=== PATIENT | male | born 1935 | race Caucasian/White ===

== ENCOUNTER 2018-08-10 13:15 | Inpatient (IN) ==
[2018-08-10 14:04] LABS: Basophils % 0.5 % (0.0-0.8); Eosinophils # 0.1 10*3/uL (0.0-0.87); Eosinophils % 1.3 % (0.00-10.9); Hematocrit 38.8 VOL% (42.0-52.0); Hemoglobin 12.1 GM/DL (14.0-18.0); Immature Granulocytes % 2.7 %; Immature Granulocytes Absolute 0.21 #; Lymphocytes # 2.1 10*3/uL (1.4-4.0); Lymphocytes % 27.1 % (21.2-54.2); Mean Corpuscular HGB Conc 31.2 GM/DL (32-36); Mean Corpuscular Volume 94.4 FL (87-102); Mean Platelet Volume 10.4 FL (9.6-12.0); Monocytes % 5.2 % (1.7-12.7); Neutrophils % 63.2 % (38.7-73.9); Platelet Count 234 T/CUMM (130-400); Red Blood Count 4.11 MC/CUMM (3.8-5.5); Red Cell Distribution Width 13.8 % (9.3-17.3); White Blood Count 7.7 T/CUMM (4-12)
[2018-08-10 14:15] LABS: PT Patient Result 10.7 SECS; Partial Thromboplastin Time 27.8 SECS (0-40)
[2018-08-10 14:22] LABS: Albumin 3.6 G/DL (3.4-5.0); Bilirubin,Total 0.5 MG/DL (0.2-1.0); Calcium 9.3 MG/DL (8.5-10.1); Osmolality,Calculated 285.5 MOS/KG (273-304); Total Protein 7.3 G/DL (6.4-8.3)
[2018-08-10 15:11] LABS: Sedimentation Rate-Westergren 76 MM/HR (0-20)
[2018-08-10 15:34] LABS: Apearance,Urine CLEAR (Clear); Bilirubin,Urine Negative (Negative); Blood, Urine Negative (Negative); Glucose,Urine (UA) Negative (Negative); Ketones,Urine Negative (Negative); Mucus,Urine Occasional /LPF (Occasional); Nitrite,Urine Negative (Negative); Protein,Urine 100 MG/DL; RBC,Urine 1 /HPF (0-4); Squamous Epithelial Cell,Urine Occasional /HPF (0-10); Urine Color Yellow (Yellow); Urine Urobilinogen < 2.0 EU/DL (0.2-1.0); WBC,Urine 1 /HPF (0-6)
[2018-08-10] MEDS ORDERED: ACETAMINOPHEN 325 MG TABLET PO PRN (16:19)
[2018-08-10] MEDS ORDERED: guaiFENesin/DM ER 600-30 MG TABLET PO PRN (16:19)
[2018-08-10] MEDS ORDERED: DEXTROSE 50% 25 GM/50 ML VIAL IV PRN (16:19)
[2018-08-10] MEDS ORDERED: GLUCAGON 1 MG VIAL IM PRN (16:19)
[2018-08-10] MEDS ORDERED: diphenhydrAMINE CAP 25 MG CAPSULE PO PRN (16:19)
[2018-08-10] MEDS ORDERED: ONDANSETRON 4 MG/2 ML VIAL IV PRN (16:19)
[2018-08-10] MEDS ORDERED: ALBUTEROL 2.5 MG/3 ML NEB RESP TX PRN (16:26)
[2018-08-10] MEDS ORDERED: HEPARIN 5,000 UNIT/1 ML VIAL SUBCUT SCH (16:30)
[2018-08-10 18:03] LABS: Barbiturates Screen,Urine Negative (Negative); Benzodiazepines Screen,Urine Negative (Negative); Cannabinoid Screen,Urine Negative (Negative); Opiate Screen,Urine Negative (Negative); Phencyclidine Screen,Urine Negative (Negative)
[2018-08-10] MEDS ORDERED: LABETALOL 20 MG/4 ML SYRINGE IV PRN (19:28)
[2018-08-10] MEDS: INSULIN REGULAR 100 UNIT/ML SUBCUT SCH ×2 (19:50→21:03)
[2018-08-10] MEDS: SODIUM CHLORIDE 0.9% 1,000 ML IV SCH (20:59)
[2018-08-10] MEDS: DOCUSATE SODIUM 100 MG CAPSULE PO SCH (21:03)
[2018-08-10] MEDS: ATORVASTATIN 80 MG TABLET PO SCH (21:03)
[2018-08-10] MEDS: CARVEDILOL 6.25 MG TABLET PO SCH (21:03)
[2018-08-10] MEDS: metFORMIN 500 MG TABLET PO SCH (21:03)
[2018-08-10] MEDS: MONTELUKAST 10 MG TABLET PO SCH (21:03)
[2018-08-10] MEDS: TAMSULOSIN 0.4 MG CAPSULE PO SCH (21:03)
[2018-08-11 05:07] LABS: Basophils # 0.1 10*3/uL (0.0-0.2); Basophils % 0.7 % (0.0-0.8); Eosinophils # 0.2 10*3/uL (0.0-0.87); Eosinophils % 2.1 % (0.00-10.9); Hematocrit 36.6 VOL% (42.0-52.0); Hemoglobin 11.8 GM/DL (14.0-18.0); Immature Granulocytes % 2.6 %; Immature Granulocytes Absolute 0.23 #; Lymphocytes # 2.9 10*3/uL (1.4-4.0); Lymphocytes % 32.6 % (21.2-54.2); Mean Corpuscular HGB Conc 32.2 GM/DL (32-36); Mean Corpuscular Volume 93.8 FL (87-102); Mean Platelet Volume 10.4 FL (9.6-12.0); Monocytes % 8.7 % (1.7-12.7); Neutrophils % 53.3 % (38.7-73.9); Platelet Count 219 T/CUMM (130-400); Red Cell Distribution Width 13.7 % (9.3-17.3); White Blood Count 8.8 T/CUMM (4-12)
[2018-08-11 05:26] LABS: VLDL CHOLESTEROL 11.2 MG/DL
[2018-08-11 05:31] LABS: Albumin 3.4 G/DL (3.4-5.0); Bilirubin,Total 0.8 MG/DL (0.2-1.0); Calcium 8.9 MG/DL (8.5-10.1); Osmolality,Calculated 286.4 MOS/KG (273-304); Total Protein 6.6 G/DL (6.4-8.3)
[2018-08-11] MEDS ORDERED: ASPIRIN EC 81 MG TABLET PO SCH (09:00)
[2018-08-11] MEDS ORDERED: CLOPIDOGREL 75 MG TABLET PO SCH (09:00)
[2018-08-11] MEDS: INSULIN REGULAR 100 UNIT/ML SUBCUT SCH ×4 (10:25→20:43)
[2018-08-11] MEDS: sitaGLIPtin 100 MG TABLET PO SCH (10:57)
[2018-08-11] MEDS: MULTIVITAMIN (CENTRUM) TABLET PO SCH (10:57)
[2018-08-11] MEDS: CARVEDILOL 6.25 MG TABLET PO SCH ×2 (10:57→20:43)
[2018-08-11] MEDS: metFORMIN 500 MG TABLET PO SCH ×2 (10:57→20:43)
[2018-08-11] MEDS: PANTOPRAZOLE 40 MG TABLET PO SCH (10:57)
[2018-08-11] MEDS: DOCUSATE SODIUM 100 MG CAPSULE PO SCH ×2 (10:57→20:42)
[2018-08-11] MEDS: FUROSEMIDE 20 MG TABLET PO SCH (10:58)
[2018-08-11] MEDS: FLUTICASONE 50 MCG NASAL SPRAY 16 GM BOTTLE BOTH NARES SCH (10:58)
[2018-08-11] MEDS: SODIUM CHLORIDE 0.9% 1,000 ML IV SCH ×2 (16:32→18:48)
[2018-08-11] MEDS: ATORVASTATIN 80 MG TABLET PO SCH (20:42)
[2018-08-11] MEDS: TAMSULOSIN 0.4 MG CAPSULE PO SCH (20:43)
[2018-08-11] MEDS: MONTELUKAST 10 MG TABLET PO SCH (20:43)
[2018-08-11] MEDS: ENOXAPARIN 40 MG/0.4 ML SYRINGE SUBCUT SCH (20:43)
[2018-08-12] MEDS: SODIUM CHLORIDE 0.9% 1,000 ML IV SCH ×2 (04:40→18:16)
[2018-08-12 04:57] LABS: Basophils # 0.1 10*3/uL (0.0-0.2); Basophils % 0.6 % (0.0-0.8); Eosinophils # 0.2 10*3/uL (0.0-0.87); Eosinophils % 2.1 % (0.00-10.9); Hemoglobin 10.9 GM/DL (14.0-18.0); Immature Granulocytes % 2.1 %; Immature Granulocytes Absolute 0.21 #; Lymphocytes % 29.7 % (21.2-54.2); Mean Corpuscular HGB Conc 31.1 GM/DL (32-36); Mean Corpuscular Volume 94.3 FL (87-102); Mean Platelet Volume 10.5 FL (9.6-12.0); Monocytes % 10.8 % (1.7-12.7); Neutrophils % 54.7 % (38.7-73.9); Platelet Count 208 T/CUMM (130-400); Red Blood Count 3.71 MC/CUMM (3.8-5.5); Red Cell Distribution Width 13.6 % (9.3-17.3); White Blood Count 10.2 T/CUMM (4-12)
[2018-08-12 05:20] LABS: Albumin 2.8 G/DL (3.4-5.0); Calcium 8.6 MG/DL (8.5-10.1); Osmolality,Calculated 283.4 MOS/KG (273-304); Total Protein 6.1 G/DL (6.4-8.3)
[2018-08-12] MEDS: INSULIN REGULAR 100 UNIT/ML SUBCUT SCH ×4 (09:27→22:19)
[2018-08-12] MEDS: FUROSEMIDE 20 MG TABLET PO SCH (09:39)
[2018-08-12] MEDS: PANTOPRAZOLE 40 MG TABLET PO SCH (09:39)
[2018-08-12] MEDS: POTASSIUM CHLORIDE 8 MEQ CAPSULE PO SCH (09:39)
[2018-08-12] MEDS: ASPIRIN 325 MG TABLET PO SCH (09:39)
[2018-08-12] MEDS: MULTIVITAMIN (CENTRUM) TABLET PO SCH (09:39)
[2018-08-12] MEDS: metFORMIN 500 MG TABLET PO SCH ×2 (09:39→22:18)
[2018-08-12] MEDS: DOCUSATE SODIUM 100 MG CAPSULE PO SCH ×2 (09:40→22:18)
[2018-08-12] MEDS: CARVEDILOL 6.25 MG TABLET PO SCH ×2 (09:41→22:18)
[2018-08-12] MEDS: sitaGLIPtin 100 MG TABLET PO SCH (09:41)
[2018-08-12] MEDS: FLUTICASONE 50 MCG NASAL SPRAY 16 GM BOTTLE BOTH NARES SCH (09:41)
[2018-08-12] MEDS ORDERED: MAGNESIUM SULF RIDER 4 GM in PREMIX 1 EACH IV PRN (11:40)
[2018-08-12] MEDS ORDERED: MAGNESIUM SULF RIDER 2 GM in PREMIX 1 EACH IV PRN (11:40)
[2018-08-12] MEDS: CIPROFLOXACIN INJ 400 MG in PREMIX 1 EACH IV SCH (14:57)
[2018-08-12] MEDS: metroNIDAZOLE INJ 500 MG in PREMIX 1 EACH IV SCH ×2 (16:06→22:19)
[2018-08-12] MEDS ORDERED: FUROSEMIDE 40 MG/4 ML VIAL IV ONE (17:03)
[2018-08-12] MEDS ORDERED: hydrALAZINE 20 MG/1 ML VIAL IV ONE (17:04)
[2018-08-12] MEDS: MONTELUKAST 10 MG TABLET PO SCH (22:18)
[2018-08-12] MEDS: ATORVASTATIN 80 MG TABLET PO SCH (22:18)
[2018-08-12] MEDS: TAMSULOSIN 0.4 MG CAPSULE PO SCH (22:18)
[2018-08-12] MEDS: ENOXAPARIN 40 MG/0.4 ML SYRINGE SUBCUT SCH (22:19)
[2018-08-13] MEDS: CIPROFLOXACIN INJ 400 MG in PREMIX 1 EACH IV SCH ×2 (01:12→13:50)
[2018-08-13 04:23] LABS: Basophils # 0.1 10*3/uL (0.0-0.2); Basophils % 0.6 % (0.0-0.8); Eosinophils # 0.2 10*3/uL (0.0-0.87); Eosinophils % 2.4 % (0.00-10.9); Hematocrit 35.5 VOL% (42.0-52.0); Hemoglobin 11.4 GM/DL (14.0-18.0); Immature Granulocytes % 1.8 %; Immature Granulocytes Absolute 0.16 #; Lymphocytes # 2.9 10*3/uL (1.4-4.0); Lymphocytes % 32.7 % (21.2-54.2); Mean Corpuscular HGB Conc 32.1 GM/DL (32-36); Mean Corpuscular Volume 92.7 FL (87-102); Mean Platelet Volume 10.6 FL (9.6-12.0); Monocytes % 12.8 % (1.7-12.7); Neutrophils % 49.7 % (38.7-73.9); Platelet Count 202 T/CUMM (130-400); Red Blood Count 3.83 MC/CUMM (3.8-5.5); Red Cell Distribution Width 13.8 % (9.3-17.3)
[2018-08-13 04:51] LABS: Albumin 3.1 G/DL (3.4-5.0); Bilirubin,Total 0.7 MG/DL (0.2-1.0); Calcium 8.7 MG/DL (8.5-10.1); Osmolality,Calculated 281.5 MOS/KG (273-304); Total Protein 6.4 G/DL (6.4-8.3)
[2018-08-13] MEDS: metFORMIN 500 MG TABLET PO SCH ×2 (09:10→21:37)
[2018-08-13] MEDS: PANTOPRAZOLE 40 MG TABLET PO SCH (09:11)
[2018-08-13] MEDS: ASPIRIN 325 MG TABLET PO SCH (09:11)
[2018-08-13] MEDS: FUROSEMIDE 20 MG TABLET PO SCH (09:11)
[2018-08-13] MEDS: sitaGLIPtin 100 MG TABLET PO SCH (09:11)
[2018-08-13] MEDS: DOCUSATE SODIUM 100 MG CAPSULE PO SCH ×2 (09:11→21:37)
[2018-08-13] MEDS: MULTIVITAMIN (CENTRUM) TABLET PO SCH (09:11)
[2018-08-13] MEDS: CARVEDILOL 6.25 MG TABLET PO SCH ×2 (09:11→21:37)
[2018-08-13] MEDS: FLUTICASONE 50 MCG NASAL SPRAY 16 GM BOTTLE BOTH NARES SCH (09:12)
[2018-08-13] MEDS: metroNIDAZOLE INJ 500 MG in PREMIX 1 EACH IV SCH ×3 (09:14→21:38)
[2018-08-13] MEDS: INSULIN REGULAR 100 UNIT/ML SUBCUT SCH ×4 (09:27→21:44)
[2018-08-13] MEDS: LISINOPRIL 5 MG TABLET PO SCH (13:50)
[2018-08-13] MEDS: ENOXAPARIN 40 MG/0.4 ML SYRINGE SUBCUT SCH (21:37)
[2018-08-13] MEDS: MONTELUKAST 10 MG TABLET PO SCH (21:37)
[2018-08-13] MEDS: URSODIOL 300 MG CAPSULE PO SCH (21:37)
[2018-08-13] MEDS: ATORVASTATIN 80 MG TABLET PO SCH (21:37)
[2018-08-13] MEDS: TAMSULOSIN 0.4 MG CAPSULE PO SCH (21:46)
[2018-08-14] MEDS: CIPROFLOXACIN INJ 400 MG in PREMIX 1 EACH IV SCH ×2 (02:01→14:26)
[2018-08-14] MEDS: metroNIDAZOLE INJ 500 MG in PREMIX 1 EACH IV SCH ×4 (05:15→21:55)
[2018-08-14 05:39] LABS: Folate > 24.0 NG/ML (5.4-24.0); Vitamin B12 237 PG/ML (211-911)
[2018-08-14] MEDS ORDERED: MIDAZOLAM 2 MG/2 ML VIAL IV ONE (08:30)
[2018-08-14] MEDS ORDERED: fentaNYL 100 MCG/2 ML VIAL IV ONE (08:30)
[2018-08-14] MEDS ORDERED: DIAZEPAM 5 MG TABLET PO ONE (09:52)
[2018-08-14] MEDS ORDERED: ONDANSETRON 4 MG/2 ML VIAL ONE (10:27)
[2018-08-14] MEDS ORDERED: MIDAZOLAM 2 MG/2 ML VIAL ONE (10:27)
[2018-08-14] MEDS ORDERED: fentaNYL 100 MCG/2 ML VIAL ONE (10:27)
[2018-08-14] MEDS ORDERED: hydrALAZINE 20 MG/1 ML VIAL ONE (11:13)
[2018-08-14] MEDS: INSULIN REGULAR 100 UNIT/ML SUBCUT SCH ×4 (11:16→21:54)
[2018-08-14] MEDS: FLUTICASONE 50 MCG NASAL SPRAY 16 GM BOTTLE BOTH NARES SCH (11:17)
[2018-08-14] MEDS ORDERED: hydrALAZINE 20 MG/1 ML VIAL IV ONE (11:24)
[2018-08-14] MEDS: DOCUSATE SODIUM 100 MG CAPSULE PO SCH ×2 (13:08→20:48)
[2018-08-14] MEDS: LISINOPRIL 5 MG TABLET PO SCH (13:08)
[2018-08-14] MEDS: sitaGLIPtin 100 MG TABLET PO SCH (13:08)
[2018-08-14] MEDS: ASPIRIN 325 MG TABLET PO SCH (13:08)
[2018-08-14] MEDS: PANTOPRAZOLE 40 MG TABLET PO SCH (13:08)
[2018-08-14] MEDS: POTASSIUM CHLORIDE 8 MEQ CAPSULE PO SCH (13:08)
[2018-08-14] MEDS: metFORMIN 500 MG TABLET PO SCH ×2 (13:08→20:47)
[2018-08-14] MEDS: FUROSEMIDE 20 MG TABLET PO SCH (13:08)
[2018-08-14] MEDS: URSODIOL 300 MG CAPSULE PO SCH ×2 (13:08→20:48)
[2018-08-14] MEDS: MULTIVITAMIN (CENTRUM) TABLET PO SCH (13:08)
[2018-08-14] MEDS: CARVEDILOL 6.25 MG TABLET PO SCH ×2 (13:09→20:48)
[2018-08-14] MEDS: MONTELUKAST 10 MG TABLET PO SCH (20:47)
[2018-08-14] MEDS: ATORVASTATIN 80 MG TABLET PO SCH (20:48)
[2018-08-14] MEDS: TAMSULOSIN 0.4 MG CAPSULE PO SCH (20:48)
[2018-08-14] MEDS: ENOXAPARIN 40 MG/0.4 ML SYRINGE SUBCUT SCH (20:49)
[2018-08-15] MEDS: CIPROFLOXACIN INJ 400 MG in PREMIX 1 EACH IV SCH ×2 (01:45→12:46)
[2018-08-15] MEDS: metroNIDAZOLE INJ 500 MG in PREMIX 1 EACH IV SCH ×2 (06:42→14:15)
[2018-08-15] MEDS: INSULIN REGULAR 100 UNIT/ML SUBCUT SCH ×2 (09:02→11:55)
[2018-08-15] MEDS: PANTOPRAZOLE 40 MG TABLET PO SCH (09:03)
[2018-08-15] MEDS: URSODIOL 300 MG CAPSULE PO SCH (09:03)
[2018-08-15] MEDS: ASPIRIN 325 MG TABLET PO SCH (09:03)
[2018-08-15] MEDS: sitaGLIPtin 100 MG TABLET PO SCH (09:03)
[2018-08-15] MEDS: MULTIVITAMIN (CENTRUM) TABLET PO SCH (09:03)
[2018-08-15] MEDS: FUROSEMIDE 20 MG TABLET PO SCH (09:03)
[2018-08-15] MEDS: FLUTICASONE 50 MCG NASAL SPRAY 16 GM BOTTLE BOTH NARES SCH (09:04)
[2018-08-15] MEDS: DOCUSATE SODIUM 100 MG CAPSULE PO SCH (09:04)
[2018-08-15] MEDS: LISINOPRIL 5 MG TABLET PO SCH (09:04)
[2018-08-15] MEDS: metFORMIN 500 MG TABLET PO SCH (09:04)
[2018-08-15] MEDS: CARVEDILOL 6.25 MG TABLET PO SCH (09:05)
[2018-08-15 12:59] VITALS: BP 134/62
== END 2018-08-15 14:10 | DRG 65 ==
LOC: N.ED 13:15 → N.EDINP 16:42 → SUATTDRO 16:42 → N.4E 18:27
PROVIDERS: ADMIT Hospitalist; ATTEND Internal Medicine

== ENCOUNTER 2018-10-09 05:52 | Inpatient (IN) ==
[2018-10-09] MEDS ORDERED: ceFAZolin 1,000 MG in SYRINGE 1 EACH IV ONE (06:00)
[2018-10-09] MEDS ORDERED: INDOCYANINE GREEN 25 MG VIAL IV ONE (06:43)
[2018-10-09] MEDS ORDERED: ALBUTEROL 1.25 MG/3 ML NEB RESP TX STA (07:17)
[2018-10-09] MEDS ORDERED: ONDANSETRON 4 MG/2 ML VIAL IV PRN (08:48)
[2018-10-09] MEDS ORDERED: DEXTROSE 50% 25 GM/50 ML VIAL IV PRN (08:48)
[2018-10-09] MEDS ORDERED: ALBUTEROL 1.25 MG/3 ML NEB RESP TX PRN (08:48)
[2018-10-09] MEDS ORDERED: ACETAMINOPHEN 325 MG TABLET PO PRN (08:48)
[2018-10-09] MEDS ORDERED: PROMETHAZINE 25 MG/1 ML VIAL IM PRN (08:48)
[2018-10-09] MEDS ORDERED: GLUCAGON 1 MG VIAL IM PRN (08:48)
[2018-10-09 09:15] LABS: Basophils % 0.5 % (0.0-0.8); Eosinophils # 0.2 10*3/uL (0.0-0.87); Eosinophils % 2.5 % (0.00-10.9); Hematocrit 34.1 VOL% (42.0-52.0); Hemoglobin 10.5 GM/DL (14.0-18.0); Immature Granulocytes % 2.2 %; Immature Granulocytes Absolute 0.17 #; Lymphocytes # 2.2 10*3/uL (1.4-4.0); Lymphocytes % 28.1 % (21.2-54.2); Mean Corpuscular HGB Conc 30.8 GM/DL (32-36); Mean Corpuscular Volume 93.2 FL (87-102); Mean Platelet Volume 9.8 FL (9.6-12.0); Monocytes % 7.5 % (1.7-12.7); Neutrophils % 59.2 % (38.7-73.9); Platelet Count 200 T/CUMM (130-400); Red Blood Count 3.66 MC/CUMM (3.8-5.5); Red Cell Distribution Width 14.6 % (9.3-17.3); White Blood Count 7.7 T/CUMM (4-12)
[2018-10-09] MEDS: INSULIN REGULAR 100 UNIT/ML SUBCUT SCH ×4 (09:32→21:56)
[2018-10-09 09:44] LABS: Albumin 2.7 G/DL (3.4-5.0); Bilirubin,Total 0.7 MG/DL (0.2-1.0); Calcium 9.2 MG/DL (8.5-10.1); Osmolality,Calculated 282.5 MOS/KG (273-304); Total Protein 6.8 G/DL (6.4-8.3)
[2018-10-09] MEDS: methylPREDNISolone SOD SUC 40 MG/1 ML VIAL IV SCH ×3 (09:47→18:31)
[2018-10-09] MEDS: CARVEDILOL 6.25 MG TABLET PO SCH ×2 (09:48→21:57)
[2018-10-09] MEDS: MULTIVITAMIN (CENTRUM) TABLET PO SCH (09:48)
[2018-10-09] MEDS: ASPIRIN 325 MG TABLET PO SCH (09:48)
[2018-10-09] MEDS: FUROSEMIDE 20 MG TABLET PO SCH (09:48)
[2018-10-09] MEDS: POTASSIUM CHLORIDE 8 MEQ CAPSULE PO SCH (09:48)
[2018-10-09] MEDS: PANTOPRAZOLE 40 MG TABLET PO SCH (09:48)
[2018-10-09] MEDS: FLUTICASONE 50 MCG NASAL SPRAY 16 GM BOTTLE BOTH NARES SCH (10:21)
[2018-10-09] MEDS: FLUTICASONE/SALMETEROL 250-50 DISKUS 14 DOSE INH SCH ×2 (13:11→21:54)
[2018-10-09] MEDS: DONEPEZIL 5 MG TABLET PO SCH (21:55)
[2018-10-09] MEDS: ATORVASTATIN 80 MG TABLET PO SCH (21:55)
[2018-10-09] MEDS: MONTELUKAST 10 MG TABLET PO SCH (21:55)
[2018-10-09] MEDS: CARBIDOPA/LEVODOPA 25-100 MG TABLET PO SCH (21:55)
[2018-10-09] MEDS: TAMSULOSIN 0.4 MG CAPSULE PO SCH (21:55)
[2018-10-10] MEDS: methylPREDNISolone SOD SUC 40 MG/1 ML VIAL IV SCH ×3 (00:57→17:41)
[2018-10-10 05:20] LABS: Basophils % 0.6 % (0.0-0.8); Hematocrit 35.1 VOL% (42.0-52.0); Immature Granulocytes Absolute 0.13 #; Lymphocytes # 1.1 10*3/uL (1.4-4.0); Mean Corpuscular HGB Conc 31.3 GM/DL (32-36); Mean Corpuscular Volume 91.2 FL (87-102); Mean Platelet Volume 10.4 FL (9.6-12.0); Monocytes % 1.2 % (1.7-12.7); Neutrophils % 61.2 % (38.7-73.9); Platelet Count 234 T/CUMM (130-400); Red Blood Count 3.85 MC/CUMM (3.8-5.5); Red Cell Distribution Width 14.4 % (9.3-17.3); White Blood Count 3.3 T/CUMM (4-12)
[2018-10-10 05:44] LABS: Albumin 2.9 G/DL (3.4-5.0); Bilirubin,Total 0.7 MG/DL (0.2-1.0); Calcium 9.9 MG/DL (8.5-10.1); Osmolality,Calculated 285.5 MOS/KG (273-304); Total Protein 7.1 G/DL (6.4-8.3)
[2018-10-10 05:54] LABS: Lymphocytes 42 % (20-55); Metamyelocytes 1 %; Platelet Estimate Normal; Polychromasia Few; Segmented Neutrophils 56 % (50-85); Total Cells Counted 100
[2018-10-10] MEDS ORDERED: cefOXitin 2,000 MG in SYRINGE 1 EACH IV ONE (07:23)
[2018-10-10] MEDS: INSULIN REGULAR 100 UNIT/ML SUBCUT SCH ×4 (09:35→21:35)
[2018-10-10] MEDS: FLUTICASONE/SALMETEROL 250-50 DISKUS 14 DOSE INH SCH ×2 (09:36→21:35)
[2018-10-10] MEDS: ASPIRIN 325 MG TABLET PO SCH (09:38)
[2018-10-10] MEDS: PANTOPRAZOLE 40 MG TABLET PO SCH (09:38)
[2018-10-10] MEDS: FUROSEMIDE 20 MG TABLET PO SCH (09:38)
[2018-10-10] MEDS: MULTIVITAMIN (CENTRUM) TABLET PO SCH (09:38)
[2018-10-10] MEDS: FLUTICASONE 50 MCG NASAL SPRAY 16 GM BOTTLE BOTH NARES SCH (09:38)
[2018-10-10] MEDS: CARVEDILOL 6.25 MG TABLET PO SCH ×2 (09:38→21:35)
[2018-10-10] MEDS: DONEPEZIL 5 MG TABLET PO SCH (21:35)
[2018-10-10] MEDS: ATORVASTATIN 80 MG TABLET PO SCH (21:35)
[2018-10-10] MEDS: CARBIDOPA/LEVODOPA 25-100 MG TABLET PO SCH (21:35)
[2018-10-10] MEDS: TAMSULOSIN 0.4 MG CAPSULE PO SCH (21:35)
[2018-10-10] MEDS: MONTELUKAST 10 MG TABLET PO SCH (21:35)
[2018-10-11] MEDS: ENOXAPARIN 40 MG/0.4 ML SYRINGE SUBCUT SCH ×2 (00:59→22:21)
[2018-10-11] MEDS: methylPREDNISolone SOD SUC 40 MG/1 ML VIAL IV SCH ×3 (01:23→16:38)
[2018-10-11] MEDS ORDERED: INDOCYANINE GREEN 25 MG VIAL IV ONE (07:32)
[2018-10-11] MEDS: CARVEDILOL 6.25 MG TABLET PO SCH ×2 (08:50→20:36)
[2018-10-11] MEDS: INSULIN REGULAR 100 UNIT/ML SUBCUT SCH ×4 (08:50→20:35)
[2018-10-11] MEDS: FUROSEMIDE 20 MG TABLET PO SCH (08:51)
[2018-10-11] MEDS: MULTIVITAMIN (CENTRUM) TABLET PO SCH (08:51)
[2018-10-11] MEDS: ASPIRIN 325 MG TABLET PO SCH (08:51)
[2018-10-11] MEDS: POTASSIUM CHLORIDE 8 MEQ CAPSULE PO SCH (08:52)
[2018-10-11] MEDS: PANTOPRAZOLE 40 MG TABLET PO SCH (08:52)
[2018-10-11] MEDS ORDERED: cefOXitin 2,000 MG in SYRINGE 1 EACH IV SCH (09:30)
[2018-10-11] MEDS: FLUTICASONE/SALMETEROL 250-50 DISKUS 14 DOSE INH SCH ×2 (09:53→20:36)
[2018-10-11] MEDS: FLUTICASONE 50 MCG NASAL SPRAY 16 GM BOTTLE BOTH NARES SCH (09:53)
[2018-10-11] MEDS ORDERED: cefOXitin 2,000 MG in SYRINGE 1 EACH IV ONE (11:00)
[2018-10-11] MEDS ORDERED: TISSUE ADHESIVE 1 EACH APPLICATOR TOP ONE (12:08)
[2018-10-11] MEDS ORDERED: LIDOCAINE 1%/EPI INJ 20 ML VIAL ONE (12:08)
[2018-10-11] MEDS ORDERED: BUPIVACAINE MPF 0.25% /EPI 30 ML VIAL ONE (12:08)
[2018-10-11] MEDS ORDERED: ALBUMIN 5% 12.5 GM/250 ML VIAL IV ONE (12:11)
[2018-10-11] MEDS ORDERED: LACTATED RINGERS 1,000 ML IV SCH (13:00)
[2018-10-11] MEDS ORDERED: ePHEDrine 50 MG/ML AMP ONE (14:19)
[2018-10-11] MEDS ORDERED: SEVOFLURANE 1 UNIT/15 MINUTE INH ONE (14:19)
[2018-10-11] MEDS ORDERED: fentaNYL 100 MCG/2 ML VIAL ONE (14:19)
[2018-10-11] MEDS ORDERED: ROCURONIUM 100 MG/10 ML VIAL IV ONE (14:20)
[2018-10-11] MEDS ORDERED: NEOSTIGMINE 10 MG/10 ML VIAL ONE (14:20)
[2018-10-11] MEDS ORDERED: PHENYLEPHRINE 1 MG/10 ML SYRINGE IV ONE (14:20)
[2018-10-11] MEDS ORDERED: ONDANSETRON 4 MG/2 ML VIAL ONE ×2 (14:20→14:31)
[2018-10-11] MEDS ORDERED: GLYCOPYRROLATE 0.4 MG/2 ML VIAL ONE ×2 (14:20)
[2018-10-11] MEDS ORDERED: hydrALAZINE 20 MG/1 ML VIAL IV ONE (14:30)
[2018-10-11] MEDS ORDERED: ONDANSETRON 4 MG/2 ML VIAL IV PRN (14:30)
[2018-10-11] MEDS ORDERED: hydrALAZINE 20 MG/1 ML VIAL ONE (14:31)
[2018-10-11] MEDS ORDERED: HYDROmorphone 2 MG/1 ML VIAL ONE (14:31)
[2018-10-11] MEDS: HYDROmorphone 2 MG/1 ML VIAL IV PRN ×2 (14:35→14:40)
[2018-10-11] MEDS: MONTELUKAST 10 MG TABLET PO SCH (20:36)
[2018-10-11] MEDS: DONEPEZIL 5 MG TABLET PO SCH (20:36)
[2018-10-11] MEDS: CARBIDOPA/LEVODOPA 25-100 MG TABLET PO SCH (20:36)
[2018-10-11] MEDS: TAMSULOSIN 0.4 MG CAPSULE PO SCH (20:36)
[2018-10-11] MEDS: ATORVASTATIN 80 MG TABLET PO SCH (20:36)
[2018-10-12] MEDS: methylPREDNISolone SOD SUC 40 MG/1 ML VIAL IV SCH ×2 (01:41→09:06)
[2018-10-12 04:38] LABS: Basophils % 0.2 % (0.0-0.8); Hematocrit 36.3 VOL% (42.0-52.0); Hemoglobin 11.4 GM/DL (14.0-18.0); Immature Granulocytes % 2.2 %; Immature Granulocytes Absolute 0.34 #; Lymphocytes # 1.3 10*3/uL (1.4-4.0); Lymphocytes % 8.3 % (21.2-54.2); Mean Corpuscular HGB Conc 31.4 GM/DL (32-36); Mean Corpuscular Volume 92.1 FL (87-102); Mean Platelet Volume 10.3 FL (9.6-12.0); Neutrophils % 84.3 % (38.7-73.9); Platelet Count 237 T/CUMM (130-400); Red Blood Count 3.94 MC/CUMM (3.8-5.5); Red Cell Distribution Width 14.5 % (9.3-17.3); White Blood Count 15.5 T/CUMM (4-12)
[2018-10-12 05:06] LABS: Alanine Aminotransferase < 9 U/L (16-61); Albumin 2.7 G/DL (3.4-5.0); Alkaline Phosphatase 87 U/L (45-117); Aspartate Amino Transferase 23 U/L (0-37); Blood Urea Nitrogen 30 MG/DL (7-18); Calcium 9.1 MG/DL (8.5-10.1); Glucose 148 MG/DL (74-106); Osmolality,Calculated 283.7 MOS/KG (273-304); Total Protein 6.4 G/DL (6.4-8.3)
[2018-10-12] MEDS ORDERED: POLYETHYLENE GLYCOL POWDER 17 GM PACK PO SCH (09:00)
[2018-10-12] MEDS: FUROSEMIDE 20 MG TABLET PO SCH (09:05)
[2018-10-12] MEDS: CARVEDILOL 6.25 MG TABLET PO SCH ×2 (09:05→20:41)
[2018-10-12] MEDS: PANTOPRAZOLE 40 MG TABLET PO SCH (09:06)
[2018-10-12] MEDS: ASPIRIN 325 MG TABLET PO SCH (09:06)
[2018-10-12] MEDS: INSULIN REGULAR 100 UNIT/ML SUBCUT SCH ×4 (09:06→20:44)
[2018-10-12] MEDS: MULTIVITAMIN (CENTRUM) TABLET PO SCH (09:07)
[2018-10-12] MEDS: FLUTICASONE/SALMETEROL 250-50 DISKUS 14 DOSE INH SCH ×2 (09:23→20:41)
[2018-10-12] MEDS: FLUTICASONE 50 MCG NASAL SPRAY 16 GM BOTTLE BOTH NARES SCH (09:23)
[2018-10-12] MEDS: DONEPEZIL 5 MG TABLET PO SCH (20:41)
[2018-10-12] MEDS: ATORVASTATIN 80 MG TABLET PO SCH (20:41)
[2018-10-12] MEDS: CARBIDOPA/LEVODOPA 25-100 MG TABLET PO SCH (20:41)
[2018-10-12] MEDS: TAMSULOSIN 0.4 MG CAPSULE PO SCH (20:41)
[2018-10-12] MEDS: MONTELUKAST 10 MG TABLET PO SCH (20:41)
[2018-10-12] MEDS: ENOXAPARIN 40 MG/0.4 ML SYRINGE SUBCUT SCH (23:36)
[2018-10-13 06:44] LABS: Basophils % 0.3 % (0.0-0.8); Eosinophils % 0.2 % (0.00-10.9); Hematocrit 35.3 VOL% (42.0-52.0); Immature Granulocytes % 4.7 %; Immature Granulocytes Absolute 0.48 #; Lymphocytes # 2.6 10*3/uL (1.4-4.0); Lymphocytes % 25.5 % (21.2-54.2); Mean Corpuscular HGB Conc 31.2 GM/DL (32-36); Mean Corpuscular Volume 93.4 FL (87-102); Mean Platelet Volume 10.5 FL (9.6-12.0); Monocytes % 8.7 % (1.7-12.7); Neutrophils % 60.6 % (38.7-73.9); Platelet Count 214 T/CUMM (130-400); Red Blood Count 3.78 MC/CUMM (3.8-5.5); Red Cell Distribution Width 14.5 % (9.3-17.3); White Blood Count 10.2 T/CUMM (4-12)
[2018-10-13 07:12] LABS: Albumin 2.6 G/DL (3.4-5.0); Bilirubin,Total 0.6 MG/DL (0.2-1.0); Calcium 8.9 MG/DL (8.5-10.1); Osmolality,Calculated 288.3 MOS/KG (273-304)
[2018-10-13] MEDS: FLUTICASONE/SALMETEROL 250-50 DISKUS 14 DOSE INH SCH ×2 (08:57→20:57)
[2018-10-13] MEDS: POTASSIUM CHLORIDE 8 MEQ CAPSULE PO SCH (08:57)
[2018-10-13] MEDS: FLUTICASONE 50 MCG NASAL SPRAY 16 GM BOTTLE BOTH NARES SCH (08:57)
[2018-10-13] MEDS: CARVEDILOL 6.25 MG TABLET PO SCH ×2 (08:57→20:54)
[2018-10-13] MEDS: ASPIRIN 325 MG TABLET PO SCH (08:57)
[2018-10-13] MEDS: FUROSEMIDE 20 MG TABLET PO SCH (08:57)
[2018-10-13] MEDS: MULTIVITAMIN (CENTRUM) TABLET PO SCH (08:57)
[2018-10-13] MEDS: PANTOPRAZOLE 40 MG TABLET PO SCH (08:58)
[2018-10-13] MEDS: INSULIN REGULAR 100 UNIT/ML SUBCUT SCH ×4 (08:58→20:54)
[2018-10-13] MEDS: CARBIDOPA/LEVODOPA 25-100 MG TABLET PO SCH (20:53)
[2018-10-13] MEDS: ATORVASTATIN 80 MG TABLET PO SCH (20:53)
[2018-10-13] MEDS: MONTELUKAST 10 MG TABLET PO SCH (20:53)
[2018-10-13] MEDS: DONEPEZIL 5 MG TABLET PO SCH (20:53)
[2018-10-13] MEDS: TAMSULOSIN 0.4 MG CAPSULE PO SCH (20:53)
[2018-10-13] MEDS: ENOXAPARIN 40 MG/0.4 ML SYRINGE SUBCUT SCH (23:15)
[2018-10-14] MEDS: MULTIVITAMIN (CENTRUM) TABLET PO SCH (08:36)
[2018-10-14] MEDS: ASPIRIN 325 MG TABLET PO SCH (08:36)
[2018-10-14] MEDS: FLUTICASONE/SALMETEROL 250-50 DISKUS 14 DOSE INH SCH ×2 (08:36→21:05)
[2018-10-14] MEDS: FUROSEMIDE 20 MG TABLET PO SCH (08:36)
[2018-10-14] MEDS: CARVEDILOL 6.25 MG TABLET PO SCH ×2 (08:36→21:05)
[2018-10-14] MEDS: PANTOPRAZOLE 40 MG TABLET PO SCH (08:36)
[2018-10-14] MEDS: FLUTICASONE 50 MCG NASAL SPRAY 16 GM BOTTLE BOTH NARES SCH (08:37)
[2018-10-14] MEDS: INSULIN REGULAR 100 UNIT/ML SUBCUT SCH ×4 (08:37→23:22)
[2018-10-14] MEDS: DONEPEZIL 5 MG TABLET PO SCH (21:05)
[2018-10-14] MEDS: TAMSULOSIN 0.4 MG CAPSULE PO SCH (21:05)
[2018-10-14] MEDS: MONTELUKAST 10 MG TABLET PO SCH (21:06)
[2018-10-14] MEDS: CARBIDOPA/LEVODOPA 25-100 MG TABLET PO SCH (21:06)
[2018-10-14] MEDS: ATORVASTATIN 80 MG TABLET PO SCH (21:06)
[2018-10-15] MEDS: ENOXAPARIN 40 MG/0.4 ML SYRINGE SUBCUT SCH (00:20)
[2018-10-15 07:44] VITALS: BP 151/73
[2018-10-15] MEDS: INSULIN REGULAR 100 UNIT/ML SUBCUT SCH ×2 (07:55→12:52)
[2018-10-15] MEDS: FLUTICASONE/SALMETEROL 250-50 DISKUS 14 DOSE INH SCH (08:14)
[2018-10-15] MEDS: MULTIVITAMIN (CENTRUM) TABLET PO SCH (08:14)
[2018-10-15] MEDS: CARVEDILOL 6.25 MG TABLET PO SCH (08:14)
[2018-10-15] MEDS: ASPIRIN 325 MG TABLET PO SCH (08:14)
[2018-10-15] MEDS: PANTOPRAZOLE 40 MG TABLET PO SCH (08:14)
[2018-10-15] MEDS: POTASSIUM CHLORIDE 8 MEQ CAPSULE PO SCH (08:14)
[2018-10-15] MEDS: FLUTICASONE 50 MCG NASAL SPRAY 16 GM BOTTLE BOTH NARES SCH (08:14)
[2018-10-15] MEDS: FUROSEMIDE 20 MG TABLET PO SCH (08:14)
== END 2018-10-15 14:52 | disposition swing bed (61) | DRG 419 ==
LOC: N.OR 05:52 → N.SDSINP 05:53 → N.5E 08:46
PROVIDERS: ADMIT Surgery; ATTEND Surgery

== ENCOUNTER 2020-07-12 21:27 | Observation (INO) ==
[2020-07-12] MEDS ORDERED: SODIUM CHLORIDE 0.9% 1,000 ML IV STA (22:03)
[2020-07-12 22:21] LABS: Basophils # 0.1 10*3/uL (0.0-0.2); Basophils % 0.5 % (0.0-0.8); Eosinophils # 0.1 10*3/uL (0.0-0.87); Eosinophils % 0.5 % (0.00-10.9); Hematocrit 35.1 VOL% (42.0-52.0); Hemoglobin 10.6 GM/DL (14.0-18.0); Immature Granulocytes % 4.2 %; Immature Granulocytes Absolute 0.48 #; Lymphocytes # 2.3 10*3/uL (1.4-4.0); Lymphocytes % 20.1 % (21.2-54.2); Mean Corpuscular HGB Conc 30.2 GM/DL (32-36); Mean Corpuscular Volume 91.6 FL (87-102); Mean Platelet Volume 9.6 FL (9.6-12.0); Monocytes % 5.8 % (1.7-12.7); Neutrophils % 68.9 % (38.7-73.9); Platelet Count 299 T/CUMM (130-400); Red Blood Count 3.83 MC/CUMM (3.8-5.5); Red Cell Distribution Width 16.1 % (9.3-17.3); White Blood Count 11.5 T/CUMM (4-12)
[2020-07-12 22:39] LABS: Albumin 2.3 G/DL (3.4-5.0); Bilirubin,Total 0.6 MG/DL (0.2-1.0); Calcium 9.1 MG/DL (8.5-10.1); Osmolality,Calculated 280.7 MOS/KG (273-304); Potassium 3.5 MMOL/L (3.5-5.1); Total Protein 6.8 G/DL (5.0-7.5)
[2020-07-12 23:22] LABS: Bacteria,Urine Occasional /HPF (Few); Bilirubin,Urine Negative (Negative); Blood, Urine Negative (Negative); Glucose,Urine (UA) Negative (Negative); Hyaline Casts,Urine 9 /LPF (0-3); Ketones,Urine Negative (Negative); Mucus,Urine Moderate /LPF (Occasional); Nitrite,Urine Negative (Negative); Protein,Urine 100 MG/DL; RBC,Urine 2 /HPF (0-4); Squamous Epithelial Cell,Urine Occasional /HPF (0-10); Urine Appearance Slightly Hazy (Clear); Urine Color Yellow (Yellow); Urine Specific Gravity 1.013 (1.001-1.035); WBC,Urine 5 /HPF (0-6)
[2020-07-13] MEDS ORDERED: GLUCAGON 1 MG VIAL IM PRN (03:44)
[2020-07-13] MEDS ORDERED: DEXTROSE 50% 25 GM/50 ML VIAL IV PRN (03:44)
[2020-07-13] MEDS ORDERED: ONDANSETRON 4 MG/2 ML VIAL IV PRN (03:44)
[2020-07-13] MEDS: SODIUM CHLORIDE 0.9% 1,000 ML IV SCH (05:27)
[2020-07-13] MEDS: INSULIN REGULAR 100 UNIT/ML SUBCUT SCH ×4 (07:55→21:23)
[2020-07-13 12:35] LABS: ABG Base Excess 5.6 MMOL/L (-2.5-2.5); ABG HCO3 30.2 MMOL/L (20-26); ABG PCO2 44.7 MM HG (35-48); ABG PH 7.448 (7.35-7.45); ABG PO2 73.4 MM HG (80-95); ABG TCO2 31.6 MMOL/L (23-27)
[2020-07-13] MEDS ORDERED: hydrALAZINE 20 MG/1 ML VIAL IV PRN (17:38)
[2020-07-13] MEDS: MENTHOL/ZINC OXIDE OINT 71 GM JAR TOP SCH (21:23)
[2020-07-14] MEDS: SODIUM CHLORIDE 0.9% 1,000 ML IV SCH (01:15)
[2020-07-14 05:53] LABS: Basophils # 0.1 10*3/uL (0.0-0.2); Basophils % 0.6 % (0.0-0.8); Eosinophils # 0.1 10*3/uL (0.0-0.87); Eosinophils % 1.1 % (0.00-10.9); Hemoglobin 9.3 GM/DL (14.0-18.0); Immature Granulocytes % 3.7 %; Immature Granulocytes Absolute 0.33 #; Lymphocytes # 2.1 10*3/uL (1.4-4.0); Lymphocytes % 24.1 % (21.2-54.2); Mean Corpuscular Volume 89.6 FL (87-102); Mean Platelet Volume 9.6 FL (9.6-12.0); Monocytes % 7.1 % (1.7-12.7); Neutrophils % 63.4 % (38.7-73.9); Platelet Count 253 T/CUMM (130-400); Red Blood Count 3.35 MC/CUMM (3.8-5.5); Red Cell Distribution Width 15.9 % (9.3-17.3); White Blood Count 8.9 T/CUMM (4-12)
[2020-07-14 06:06] LABS: Albumin 1.9 G/DL (3.4-5.0); Bilirubin,Total 1.2 MG/DL (0.2-1.0); Calcium 8.5 MG/DL (8.5-10.1); Osmolality,Calculated 284.1 MOS/KG (273-304); Total Protein 5.8 G/DL (6.4-8.2)
[2020-07-14] MEDS ORDERED: MAGNESIUM SULF RIDER 4 GM in PREMIX 1 EACH IV PRN (07:13)
[2020-07-14] MEDS ORDERED: MAGNESIUM SULF RIDER 2 GM in PREMIX 1 EACH IV PRN (07:13)
[2020-07-14] MEDS: INSULIN REGULAR 100 UNIT/ML SUBCUT SCH ×4 (08:17→20:12)
[2020-07-14] MEDS: MENTHOL/ZINC OXIDE OINT 71 GM JAR TOP SCH ×2 (09:01→22:04)
[2020-07-14] MEDS ORDERED: POTASSIUM CHLORIDE 20 MEQ TABLET PO ONE (10:03)
[2020-07-14] MEDS: ENOXAPARIN 40 MG/0.4 ML SYRINGE SUBCUT SCH (12:57)
[2020-07-15 06:07] LABS: Basophils # 0.1 10*3/uL (0.0-0.2); Basophils % 0.7 % (0.0-0.8); Eosinophils # 0.1 10*3/uL (0.0-0.87); Eosinophils % 0.9 % (0.00-10.9); Hematocrit 32.6 VOL% (42.0-52.0); Hemoglobin 9.9 GM/DL (14.0-18.0); Immature Granulocytes % 4.1 %; Immature Granulocytes Absolute 0.38 #; Lymphocytes # 2.3 10*3/uL (1.4-4.0); Lymphocytes % 24.4 % (21.2-54.2); Mean Corpuscular HGB Conc 30.4 GM/DL (32-36); Mean Corpuscular Volume 90.6 FL (87-102); Mean Platelet Volume 9.6 FL (9.6-12.0); Monocytes % 7.7 % (1.7-12.7); Neutrophils % 62.2 % (38.7-73.9); Platelet Count 287 T/CUMM (130-400); Red Cell Distribution Width 15.8 % (9.3-17.3); White Blood Count 9.2 T/CUMM (4-12)
[2020-07-15 06:47] LABS: Folate 21.6 NG/ML (5.38-24.0)
[2020-07-15 06:48] LABS: Calcium 8.7 MG/DL (8.5-10.1); Free T4 (Free Thyroxine) 1.36 NG/DL (0.76-1.46); Osmolality,Calculated 276.5 MOS/KG (273-304); Potassium 3.1 MMOL/L (3.5-5.1); Thyroid Stimulating Hormone 1.15 uIU/ml (0.358-3.74)
[2020-07-15] MEDS ORDERED: ALBUTEROL 1.25 MG/3 ML NEB RESP TX PRN (08:53)
[2020-07-15] MEDS: POTASSIUM CHLORIDE 8 MEQ CAPSULE PO SCH (10:06)
[2020-07-15] MEDS: ASPIRIN 325 MG TABLET PO SCH (10:06)
[2020-07-15] MEDS: CHOLECALCIFEROL 1,000 UNIT TABLET PO SCH (10:06)
[2020-07-15] MEDS: ATORVASTATIN 80 MG TABLET PO SCH (10:07)
[2020-07-15] MEDS: FLUTICASONE/SALMETEROL 250-50 DISKUS 14 DOSE INH SCH ×2 (10:07→21:04)
[2020-07-15] MEDS: INSULIN REGULAR 100 UNIT/ML SUBCUT SCH ×4 (10:08→21:21)
[2020-07-15] MEDS: MENTHOL/ZINC OXIDE OINT 71 GM JAR TOP SCH ×2 (10:08→21:04)
[2020-07-15] MEDS: ENOXAPARIN 40 MG/0.4 ML SYRINGE SUBCUT SCH (10:10)
[2020-07-15] MEDS: MONTELUKAST 10 MG TABLET PO SCH ×2 (10:11→21:04)
[2020-07-15] MEDS: carvediloL 6.25 MG TABLET PO SCH (17:44)
[2020-07-15] MEDS: FUROSEMIDE 20 MG TABLET PO SCH (17:44)
[2020-07-15] MEDS ORDERED: CARBIDOPA/LEVODOPA 25-100 MG TABLET PO SCH (21:00)
[2020-07-15] MEDS ORDERED: TAMSULOSIN 0.4 MG CAPSULE PO SCH (21:00)
[2020-07-15] MEDS ORDERED: DONEPEZIL 5 MG TABLET PO SCH (21:00)
[2020-07-16] MEDS: INSULIN REGULAR 100 UNIT/ML SUBCUT SCH (07:54)
[2020-07-16 08:07] VITALS: BP 118/44
[2020-07-16] MEDS ORDERED: IRON (CARBONYL) 45 MG TABLET PO SCH (09:00)
[2020-07-16] MEDS ORDERED: POTASSIUM CHLORIDE 20 MEQ TABLET PO ONE (09:00)
[2020-07-16] MEDS ORDERED: DOCUSATE SODIUM 100 MG CAPSULE PO SCH (09:00)
[2020-07-16] MEDS ORDERED: MULTIVITAMIN (CENTRUM) TABLET PO SCH (09:00)
[2020-07-16] MEDS ORDERED: FLUTICASONE 50 MCG NASAL SPRAY 16 GM BOTTLE BOTH NARES SCH (09:00)
[2020-07-16] MEDS: ASPIRIN 325 MG TABLET PO SCH (09:15)
[2020-07-16] MEDS: ATORVASTATIN 80 MG TABLET PO SCH (09:15)
[2020-07-16] MEDS: FUROSEMIDE 20 MG TABLET PO SCH (09:15)
[2020-07-16] MEDS: carvediloL 6.25 MG TABLET PO SCH (09:15)
[2020-07-16] MEDS: MONTELUKAST 10 MG TABLET PO SCH (09:15)
[2020-07-16] MEDS: CHOLECALCIFEROL 1,000 UNIT TABLET PO SCH (09:15)
[2020-07-16] MEDS: FLUTICASONE/SALMETEROL 250-50 DISKUS 14 DOSE INH SCH (09:16)
[2020-07-16] MEDS: MENTHOL/ZINC OXIDE OINT 71 GM JAR TOP SCH (09:16)
[2020-07-16] MEDS: POTASSIUM CHLORIDE 8 MEQ CAPSULE PO SCH (09:16)
== END 2020-07-16 11:45 | disposition home health service (06) ==
LOC: N.ED 21:27 → N.EDINP 21:27 → SUATTDRO 07-13 01:43 → N.5E 07-13 03:50
PROVIDERS: ADMIT Internal Medicine; ATTEND Internal Medicine